=== PATIENT | male | born 1990 | race Caucasian/White ===

== ENCOUNTER 2022-11-28 05:18 | Inpatient (IN) | payer MEDICAID ==
[2022-11-25 12:23] LABS: BASOPHILS % (AUTO) 0.5 % (0.0-2.0); EOSINOPHILS % (AUTO) 0.5 % (1.0-6.0); HEMATOCRIT 44.1 % (41-53); LYMPHOCYTES # (AUTO) 1.5 K/uL (1.0-4.8); LYMPHOCYTES % (AUTO) 13.1 % (22.0-44.0); MEAN CORPUSCULAR VOLUME 91 fL (80-100); MONOCYTES # (AUTO) 0.7 K/uL (0.1-1.0); MONOCYTES % (AUTO) 5.6 % (2.0-9.0); NEUTROPHILS # (AUTO) 9.4 K/uL (1.8-7.7); NEUTROPHILS % (AUTO) 80.3 % (40.0-70.0); PLATELET COUNT (AUTO) 300 K/uL (150-450); RED BLOOD CELL COUNT(AUTO) 4.85 MIL/uL (4.50-5.90); RED CELL DISTRIBUTION WIDTH 13.2 % (11.5-14.5)
[2022-11-25 12:36] LABS: ANION GAP 5 mmol/L (8-16); CALCIUM, TOTAL 8.8 mg/dL (8.8-10.5); CARBON DIOXIDE 28 mmol/L (22-29); CHLORIDE 103 mmol/L (98-107); CREATININE 0.61 mg/dL (0.60-1.30); GLOMERULAR FILTR. RATE CALC > 60 mL/min (>60); GLUCOSE,RANDOM 88 mg/dL (70-110); POTASSIUM 3.9 mmol/L (3.5-5.1); SODIUM SERUM 136 mmol/L (136-145); UREA NITROGEN, BLOOD 9 mg/dL (7-18)
[2022-11-25 12:38] LABS: INR 0.9 (0.9-1.1)
[2022-11-25 12:42] LABS: ALANINE AMINOTRANSFERASE 22 U/L (12-78); ALBUMIN 3.8 g/dL (3.4-5.0); ALKALINE PHOSPHATASE 51 U/L (46-116); ASPARTATE AMINOTRANSFERASE 22 U/L (15-37); BILIRUBIN,TOTAL 0.6 mg/dL (0.1-1.0); TOTAL PROTEIN, SERUM 6.5 g/dL (6.4-8.2)
[~2022-11-28] VITALS: Ht 190.5 cm; Wt 79.5 kg
[2022-11-28] MEDS ORDERED: RINGERS SOLUTION,LACTATED 1,000 ML IV ONE ×2 (05:43→07:30)
[2022-11-28] MEDS ORDERED: SODIUM CHLORIDE 0.9% 100 ML ONE ×2 (05:54→07:45)
[2022-11-28] MEDS ORDERED: LIDOCAINE 2%/EPI 1:200,000/PF 20 ML VIAL ONE ×2 (05:54)
[2022-11-28] MEDS ORDERED: GELATIN SPONGE,ABSORBABLE 100 MM TP ONE (05:54)
[2022-11-28] MEDS ORDERED: NEOMYCIN/BACITRACIN/POLYMYXIN B OINTMENT PACKET TP ONE (05:54)
[2022-11-28] MEDS ORDERED: GELATIN SPONGE,ABSORBABLE 50 MM TP ONE (05:55)
[2022-11-28] MEDS ORDERED: ETHYL ALCOHOL 62% ANTISEPTIC NASAL SANITIZER 0.6 ML AMPUL NASAL ONE (06:00)
[2022-11-28] MEDS ORDERED: CeFAZolin 2 GM/DEXTROSE 50 ML IV ONE (06:30)
[2022-11-28] MEDS ORDERED: THROMBIN, BOVINE 20000 UNITS/VIAL POWDER TP ONE (06:36)
[2022-11-28] MEDS ORDERED: BACITRACIN 28 GM OINTMENT TP ONE (06:40)
[2022-11-28] MEDS ORDERED: SODIUM CHLORIDE 0.9% 0 ML ONE (06:41)
[2022-11-28] MEDS ORDERED: VANCOMYCIN HCL 1 GM/VIAL ONE (07:18)
[2022-11-28] MEDS ORDERED: PROPOFOL 1000 MG/ISO-OSM 100 ML ONE (07:31)
[2022-11-28] MEDS ORDERED: ACETAMINOPHEN 1000 MG/ISO-OSM 100 ML IV ONE (07:31)
[2022-11-28] MEDS ORDERED: MAG HYDROX/AL HYDROX/SIMETH 30 ML SUSP UDCUP PO PRN (08:45)
[2022-11-28] MEDS ORDERED: DiphenhydrAMINE HCL 25 MG CAPSULE PO PRN (08:45)
[2022-11-28] MEDS ORDERED: MAGNESIUM HYDROXIDE SUSPENSION 30 ML UDCUP PO PRN (08:45)
[2022-11-28] MEDS: ACETAMINOPHEN 1000 MG/ISO-OSM 100 ML IV SCH ×3 (08:45→23:06)
[2022-11-28] MEDS ORDERED: ONDANSETRON HCL 4 MG/2 ML VIAL IVP PRN ×3 (08:45→16:45)
[2022-11-28] MEDS ORDERED: HYDROmorphone HCL 2 MG/ML SYRINGE IVP PRN ×4 (08:45→19:15)
[2022-11-28] MEDS ORDERED: MORPHINE SULFATE 2 MG/ML SYRINGE IVP PRN (08:45)
[2022-11-28] MEDS ORDERED: MORPHINE SULFATE 4 MG/ML SYRINGE IVP PRN (08:45)
[2022-11-28] MEDS ORDERED: SODIUM PHOS/SODIUM BIPHOS 133 ML ENEMA PR PRN (08:45)
[2022-11-28] MEDS ORDERED: NALOXONE HCL 0.4 MG/ML VIAL IVP PRN (08:45)
[2022-11-28] MEDS ORDERED: HYDROCODONE/ACETAMINOPHEN 5-325 MG TABLET PO PRN ×4 (08:45)
[2022-11-28] MEDS ORDERED: DiphenhydrAMINE HCL 50 MG/ML VIAL IVP PRN (08:45)
[2022-11-28] MEDS ORDERED: ZOLPIDEM TARTRATE 10 MG TABLET PO PRN (08:45)
[2022-11-28] MEDS ORDERED: ACETAMINOPHEN 325 MG TABLET PO PRN ×2 (08:45)
[2022-11-28] MEDS ORDERED: BISACODYL 10 MG RECTAL RECTAL SUPPOSITORY PR PRN (08:45)
[2022-11-28] MEDS ORDERED: DOCUSATE SODIUM 100 MG CAPSULE PO SCH (09:00)
[2022-11-28] MEDS ORDERED: PROPOFOL 1000 MG/ISO-OSM 200 ML ONE (09:52)
[2022-11-28] MEDS ORDERED: FentaNYL CITRATE PF 100 MCG/2 ML VIAL IVP PRN (11:45)
[2022-11-28] MEDS ORDERED: MEPERIDINE-PF 25 MG/ML VIAL IVP PRN (11:45)
[2022-11-28] MEDS ORDERED: ONDANSETRON HCL 4 MG/2 ML VIAL ONE (12:16)
[2022-11-28 13:11] VITALS: BP 161/93
[2022-11-28 14:11] LABS: BASOPHILS % (AUTO) 0.1 % (0.0-2.0); EOSINOPHILS % (AUTO) 0 % (1.0-6.0); HEMATOCRIT 43.4 % (41-53); LYMPHOCYTES # (AUTO) 0.6 K/uL (1.0-4.8); LYMPHOCYTES % (AUTO) 3.5 % (22.0-44.0); MEAN CORPUSCULAR HEMOGLOBIN 31.5 pg (26.0-34.0); MEAN CORPUSCULAR HGB CONC 34.5 G/dL (31.0-37.0); MEAN CORPUSCULAR VOLUME 91 fL (80-100); MONOCYTES # (AUTO) 0.1 K/uL (0.1-1.0); MONOCYTES % (AUTO) 0.5 % (2.0-9.0); PLATELET COUNT (AUTO) 278 K/uL (150-450); RED BLOOD CELL COUNT(AUTO) 4.75 MIL/uL (4.50-5.90); RED CELL DISTRIBUTION WIDTH 13.3 % (11.5-14.5)
[2022-11-28 14:12] LABS: NEUTROPHILS % (AUTO) 95.9 % (40.0-70.0)
[2022-11-28] MEDS: CeFAZolin 1 GM/DEXTROSE 50 ML IV SCH ×2 (14:14→14:26)
[2022-11-28 14:15] LABS: ANION GAP 10 mmol/L (8-16); CALCIUM, TOTAL 8.3 mg/dL (8.8-10.5); CARBON DIOXIDE 25 mmol/L (22-29); CHLORIDE 103 mmol/L (98-107); CREATININE 0.75 mg/dL (0.60-1.30); GLOMERULAR FILTR. RATE CALC > 60 mL/min (>60); GLUCOSE,RANDOM 154 mg/dL (70-110); POTASSIUM 3.7 mmol/L (3.5-5.1); SODIUM SERUM 138 mmol/L (136-145); UREA NITROGEN, BLOOD 13 mg/dL (7-18)
[2022-11-28] MEDS: SENNOSIDES 8.6 MG TABLET PO SCH (15:10)
[2022-11-28] MEDS ORDERED: CELECOXIB 200 MG CAPSULE PO ONE (16:45)
[2022-11-28] MEDS: CYCLOBENZAPRINE HCL 10 MG TABLET PO PRN (16:55)
[2022-11-28] MEDS: DOCUSATE SODIUM 100 MG CAPSULE PO SCH (16:56)
[2022-11-28] MEDS: HYDROmorphone HCL 2 MG/ML SYRINGE IVP PRN ×4 (18:40→23:46)
[2022-11-28] MEDS: OXYGEN THERAPY IH SCH (20:00)
[2022-11-28 20:02] VITALS: BP 127/82
[2022-11-28] MEDS: DEXAMETHASONE 1 MG TABLET PO SCH (20:59)
[2022-11-28] MEDS: DOCUSATE SODIUM 250 MG CAPSULE PO SCH ×2 (21:00→22:59)
[2022-11-28 23:40] VITALS: BP 124/71
[2022-11-29 01:00] VITALS: BP 141/78
[2022-11-29] MEDS: HYDROmorphone HCL 2 MG/ML SYRINGE IVP PRN ×5 (02:00→18:19)
[2022-11-29 04:00] VITALS: BP 112/63
[2022-11-29] MEDS ORDERED: MIDAZOLAM HCL 2 MG/2 ML VIAL IVP ONE (05:36)
[2022-11-29] MEDS ORDERED: PROPOFOL 1% 20 ML VIAL IVP ONE (05:36)
[2022-11-29] MEDS ORDERED: LIDOCAINE/PF 2% 5 ML VIAL IM ONE (05:36)
[2022-11-29] MEDS ORDERED: HYDROmorphone HCL 2 MG/ML SYRINGE IVP ONE (05:36)
[2022-11-29] MEDS ORDERED: SUCCINYLCHOLINE CHLORIDE 20 MG/ML 10 ML VIAL IVP ONE (05:36)
[2022-11-29] MEDS ORDERED: DEXAMETHASONE SOD PHOS 4 MG/ML VIAL IVP ONE (05:36)
[2022-11-29] MEDS ORDERED: ONDANSETRON HCL 4 MG/2 ML VIAL IVP ONE (05:36)
[2022-11-29] MEDS ORDERED: ROCURONIUM BROMIDE 10 MG/ML 5 ML VIAL IVP ONE (05:36)
[2022-11-29] MEDS ORDERED: FentaNYL CITRATE PF 100 MCG/2 ML VIAL IVP ONE (05:36)
[2022-11-29 06:15] LABS: BASOPHILS % (AUTO) 0.1 % (0.0-2.0); EOSINOPHILS % (AUTO) 0 % (1.0-6.0); HEMATOCRIT 43.7 % (41-53); HEMOGLOBIN 14.9 g/dL (13.5-17.5); LYMPHOCYTES # (AUTO) 1.3 K/uL (1.0-4.8); LYMPHOCYTES % (AUTO) 9.5 % (22.0-44.0); MEAN CORPUSCULAR VOLUME 91 fL (80-100); MONOCYTES # (AUTO) 1.1 K/uL (0.1-1.0); MONOCYTES % (AUTO) 7.9 % (2.0-9.0); NEUTROPHILS # (AUTO) 11.5 K/uL (1.8-7.7); NEUTROPHILS % (AUTO) 82.5 % (40.0-70.0); PLATELET COUNT (AUTO) 292 K/uL (150-450); RED BLOOD CELL COUNT(AUTO) 4.81 MIL/uL (4.50-5.90); RED CELL DISTRIBUTION WIDTH 13.1 % (11.5-14.5)
[2022-11-29 06:19] LABS: ANION GAP 7 mmol/L (8-16); CALCIUM, TOTAL 8.3 mg/dL (8.8-10.5); CARBON DIOXIDE 26 mmol/L (22-29); CHLORIDE 105 mmol/L (98-107); CREATININE 0.67 mg/dL (0.60-1.30); GLOMERULAR FILTR. RATE CALC > 60 mL/min (>60); GLUCOSE,RANDOM 109 mg/dL (70-110); POTASSIUM 4.1 mmol/L (3.5-5.1); SODIUM SERUM 138 mmol/L (136-145); UREA NITROGEN, BLOOD 10 mg/dL (7-18)
[2022-11-29] MEDS: ACETAMINOPHEN 1000 MG/ISO-OSM 100 ML IV SCH (06:50)
[2022-11-29] MEDS: OXYGEN THERAPY IH SCH (08:00)
[2022-11-29] MEDS ORDERED: OxyCODONE HCL/ACETAMINOPHEN 10-325 MG TABLET PO PRN (08:06)
[2022-11-29 08:27] VITALS: BP 92/49
[2022-11-29] MEDS: DEXAMETHASONE 1 MG TABLET PO SCH (08:48)
[2022-11-29] MEDS: DOCUSATE SODIUM 100 MG CAPSULE PO SCH ×2 (08:48→18:17)
[2022-11-29] MEDS ORDERED: HYDROCODONE/ACETAMINOPHEN 5-325 MG TABLET PO PRN ×2 (09:00)
[2022-11-29] MEDS ORDERED: ACETAMINOPHEN 325 MG TABLET PO PRN (09:00)
[2022-11-29] MEDS: CYCLOBENZAPRINE HCL 10 MG TABLET PO PRN (09:10)
[2022-11-29] MEDS: SENNOSIDES 8.6 MG TABLET PO SCH (09:11)
[2022-11-29 12:00] VITALS: BP 119/54
[2022-11-29 15:30] VITALS: BP 119/68
[2022-11-29 15:37] VITALS: BP 119/68
[2022-11-29] MEDS ORDERED: IBUP-1493 PO (18:57)
[2022-11-29] MEDS ORDERED: DOCU-119 PO (18:57)
[2022-11-29] MEDS ORDERED: HYDR2TAB37 PO (18:57)
[2022-11-29] MEDS ORDERED: ONDA-104 PO (18:57)
== END 2022-11-29 20:57 | disposition home or self-care (01) | DRG 321 ==
LOC: 6S 05:18 → ICU 11-29 00:55 → 6N 11-29 15:56
PROVIDERS: ADMIT Neurological Surgery; ATTEND Hospitalist
PROC: 0RB30ZZ Excision of Cervical Vertebral Disc, Open Approach (ICD-10-PCS; 2022-11-28)
PROC: 00NW0ZZ Release Cervical Spinal Cord, Open Approach (ICD-10-PCS; 2022-11-28)
PROC: 01N10ZZ Release Cervical Nerve, Open Approach (ICD-10-PCS; 2022-11-28)
PROC: 4A11X4G Monitoring of Peripheral Nervous Electrical Activity, Intraoperative, External Approach (ICD-10-PCS; 2022-11-28)
PROC: 0RG20A0 Fusion of 2 or more Cervical Vertebral Joints with Interbody Fusion Device, Anterior Approach, Anterior Column, Open Approach (ICD-10-PCS; principal; 2022-11-28 08:15)
DX: M48.02 Spinal stenosis, cervical region (principal); F17.290 Nicotine dependence, other tobacco product, uncomplicated; M50.322 Other cervical disc degeneration at C5-C6 level; G89.29 Other chronic pain; M54.9 Dorsalgia, unspecified; M54.12 Radiculopathy, cervical region
CPT/HCPCS: 72020; 72040; 72050; 80048; 80053; 85025; 85610; 85730; 86850; 86900; 86901; 87081; 97116; 97161; 97165; 97535; G0238; J0131; J0330; J0690; J1100; J1170; J2250; J2270; J2405; J2704; J3010; J3370; J3490; J7030; J7050; J7120; J8540